=== PATIENT | female | born 1945 | race Hispanic/Latino ===

== ENCOUNTER 2018-08-31 02:03 | Emergency (ER) | payer MEDICARE, OTHER ==
[2018-08-31] MEDS ORDERED: Ketorolac Tromethamine 30 MG/ML VIAL ONE (03:35)
[2018-08-31] MEDS ORDERED: Morphine 4 MG/ML VIAL ONE (03:35)
--- NOTE | 2018-08-31 07:38 | RAD ---
LEFT SHOULDER 2 VIEWS: Date: 08/31/18 INDICATION: Fall. COMPARISON: None. FINDINGS: There is heavily comminuted proximal humerus fracture. No geronimo dislocation is evident. No additional acute osseous abnormality is evident. Visualized left lung is clear. IMPRESSION: Heavily comminuted four part proximal humerus fracture. POS: BH
--- NOTE | 2018-08-31 07:38 | RAD ---
LEFT ELBOW 2 VIEWS: Date: 08/31/18 INDICATION: Fall. COMPARISON: None. IMPRESSION: No definite acute fracture or subluxation is evident. The lateral is suboptimally positioned. No defi nite joint capsular distention is noted. POS: BH
--- NOTE | 2018-08-31 07:41 | RAD ---
LEFT WRIST 3 VIEWS: Date; 08/31/18 INDICATION: Fall. COMPARISON: None. IMPRESSION: No acute fracture or subluxation is evident. There is mild degenerative change of the wrist. There is soft tissue swelling surrounding the wrist. POS: BH
--- NOTE | 2018-08-31 07:42 | RAD ---
CHEST 1 VIEW: Date: 08/31/18 INDICATION: Mechanical fall with left shoulder pain. COMPARISON: None. FINDINGS: There is a heavily comminuted four part proximal humerus fracture. Lungs are clear. Heart size is nor mal. No pleural effusion or pneumothorax is evident. IMPRESSION: Left proximal humerus fracture. No acute cardiopulmonary abnormality. POS: BH
--- NOTE | 2018-08-31 10:05 | CT ---
CT OF THE LEFT SHOULDER WITHOUT IV CONTRAST: Date: 08/31/18 INDICATION: Left shoulder pain after falling. COMPARISON: None. FINDINGS: There is a heavily comminuted proximal left humerus fracture. Prominent comminution seen involving th e greater tuberosity and lesser tuberosity components. The humeral head component is rotated cephalad . The humeral shaft component is impacted on to the humeral head component. The glenoid and scapula a re intact. The visualized left clavicle appears intact. The left lung appears clear. There is soft ti ssue swelling surrounding the left proximal shoulder. IMPRESSION: Heavily comminuted four part proximal left humeral fracture. POS: BH
== END 2018-08-31 07:09 | disposition home or self-care (01) ==
LOC: ERS 02:03
DX: S42.252A Displaced fracture of greater tuberosity of left humerus, initial encounter for closed fracture (principal); S42.262A Displaced fracture of lesser tuberosity of left humerus, initial encounter for closed fracture; E03.9 Hypothyroidism, unspecified; E78.5 Hyperlipidemia, unspecified; I10 Essential (primary) hypertension; Z79.899 Other long term (current) drug therapy; W01.0XXA Fall on same level from slipping, tripping and stumbling without subsequent striking against object, initial encounter; Y99.0 Civilian activity done for income or pay
CPT/HCPCS: 71045; 96372; J1885; J2270